=== PATIENT | female | born 1975 | race Native Hawaiian/Other Pacific Islander ===

== ENCOUNTER 2022-08-06 19:41 | Emergency (ER) | payer OTHER ==
[~2022-08-06] VITALS: Ht 152.4 cm; Wt 61.2 kg
[2022-08-06 19:55] VITALS: BP 168/72; TEMP 98.4
== END 2022-08-06 21:25 | disposition home or self-care (01) ==
LOC: ED 19:41
DX: K02.9 Dental caries, unspecified (principal); J32.8 Other chronic sinusitis; F17.210 Nicotine dependence, cigarettes, uncomplicated
CPT/HCPCS: 99283